=== PATIENT | female | born 1955 | race Caucasian/White ===

== ENCOUNTER 2020-07-30 18:09 | Inpatient (IN) | payer OTHER ==
[~2020-07-30] VITALS: Ht 165.1 cm; Wt 71.7 kg
[~2020-07-30 18:09] MED LIST: AUGMENTIN 500-500 MG PO; CLARITIN 10MG T10 MG PO; CRESTOR10 MG PO; ECOTRIN81 MG PO; FLONASE 0.05% N16 GM; HYDROCODON-ACE1 EAC6 PO; IMDUR ER TAB 3030 MG PO; IMDUR ER TAB 6060 MG PO; KEPPRA500 MG PO; LASIX20 MG PO; MOBIC15 MG PO; NORVASC5 MG PO; PRILOSEC OTC20 MG PO; RANEXA1000 MG PO; ROBAXIN-750750 MG PO; SYNTHROID125 MCG PO; TESSALON PERLE100 MG PO; THERAGRAN M TAB1 EA PO
[2020-07-30 18:45] LABS: HEMOGLOBIN 12.9 gm/dl (12.3-15.3); RED BLOOD COUNT 4.03 M/UL (4.00-5.10); WHITE BLOOD COUNT 5.6 K/UL (4.5-11.0)
[2020-07-30 19:13] LABS: BUN/CREATININE RATIO 8 (0-10)
[2020-07-30] MEDS ORDERED: COREG 3.125M3.125 MG PO (21:01)
[2020-07-30] MEDS ORDERED: PROTONIX 40 MG40 M1 PO (21:06)
[2020-07-30] MEDS ORDERED: NITROSTAT0.4 MG SL (21:08)
[2020-07-30] MEDS ORDERED: CLARITIN 10MG T10 MG PO (21:09)
[2020-08-01 08:44] LABS: HEMOGLOBIN 13.4 gm/dl (12.3-15.3); RED BLOOD COUNT 4.13 M/UL (4.00-5.10); WHITE BLOOD COUNT 5.6 K/UL (4.5-11.0)
[2020-08-01 09:13] LABS: BUN/CREATININE RATIO 14 (0-10)
[2020-08-01 18:33] LABS: HEMOGLOBIN 13.8 gm/dl (12.3-15.3); RED BLOOD COUNT 4.19 M/UL (4.00-5.10)
[2020-08-01 18:46] LABS: BUN/CREATININE RATIO 12 (0-10)
[2020-08-02 03:21] LABS: RED BLOOD COUNT 3.99 M/UL (4.00-5.10); WHITE BLOOD COUNT 6.1 K/UL (4.5-11.0)
[2020-08-02 04:17] LABS: BUN/CREATININE RATIO 16 (0-10)
[2020-08-02] MEDS ORDERED: GLUCOPHAGE 500500 MG PO (08:43)
[2020-08-02] MEDS ORDERED: CRESTOR40 MG PO (08:43)
[2020-08-02] MEDS ORDERED: IMDUR ER TAB 3030 MG PO (08:43)
[2020-08-02] MEDS ORDERED: CLOPIDOGREL75 MG PO (08:43)
[2020-08-02] MEDS ORDERED: K-TAB ER10 MEQ PO (09:03)
== END 2020-08-02 10:22 | disposition home or self-care (01) | DRG 247 ==
LOC: ER1 18:09 → M/S 20:17 → CDU 20:17 → M/S 07-31 → PROG CARE 08-01 10:50
PROVIDERS: Emergency Medicine; Internal Medicine Interventional Cardiology; ADMIT Internal Medicine
PROC: B24BZZZ Ultrasonography of Heart with Aorta (ICD-10-PCS; 2020-07-31)
PROC: 027034Z Dilation of Coronary Artery, One Artery with Drug-eluting Intraluminal Device, Percutaneous Approach (ICD-10-PCS; principal; 2020-08-01)
PROC: 4A023N7 Measurement of Cardiac Sampling and Pressure, Left Heart, Percutaneous Approach (ICD-10-PCS; 2020-08-01)
PROC: B2111ZZ Fluoroscopy of Multiple Coronary Arteries using Low Osmolar Contrast (ICD-10-PCS; 2020-08-01)
PROC: 4A0335C Measurement of Arterial Flow, Coronary, Percutaneous Approach (ICD-10-PCS; 2020-08-01)
DX: T82.855A Stenosis of coronary artery stent, initial encounter (principal); I25.119 Atherosclerotic heart disease of native coronary artery with unspecified angina pectoris; I10 Essential (primary) hypertension; Z20.822 Contact with and (suspected) exposure to COVID-19; E78.5 Hyperlipidemia, unspecified; E87.6 Hypokalemia; K21.9 Gastro-esophageal reflux disease without esophagitis; E11.40 Type 2 diabetes mellitus with diabetic neuropathy, unspecified; E03.9 Hypothyroidism, unspecified; Z96.1 Presence of intraocular lens; Z95.5 Presence of coronary angioplasty implant and graft; Z98.42 Cataract extraction status, left eye; Z88.8 Allergy status to other drugs, medicaments and biological substances; Z82.49 Family history of ischemic heart disease and other diseases of the circulatory system; Z79.82 Long term (current) use of aspirin; Z79.899 Other long term (current) drug therapy
CPT/HCPCS: ECHO; 36415; 71046; 78452; 80048; 80053; 80061; 82550; 82553; 82962; 83036; 83874; 84132; 84484; 85025; 85027; 85347; 93005; 93017; 93306; 96372; 99152; 99153; 99285; A9502; C1725; C1769; C1874; C1894; C9600; G0378; J1644; J1650; J2250; J2785; J3010; J3480; Q9967; U0002